=== PATIENT | female | born 1940 | race African-American/Black ===

== ENCOUNTER 2018-06-15 16:40 | Emergency (ER) | payer MEDICARE ==
[~2018-06-15] VITALS: Ht 175.3 cm; Wt 108.9 kg
[2018-06-15] MEDS ORDERED: CLONIDINE HCL 0.1 MG TAB PO ONE (17:30)
[2018-06-15 18:40] VITALS: BP 171/94
== END 2018-06-15 18:47 | disposition home or self-care (01) ==
LOC: ER 16:40
DX: I10 Essential (primary) hypertension (principal)
CPT/HCPCS: 99282

== ENCOUNTER → 2019-02-27 | Outpatient (CLI) | payer MEDICARE | LOC: RAD 09:11 | PROVIDERS: ATTEND Psychiatry & Neurology Clinical Neurophysiology | DX: I82.402 Acute embolism and thrombosis of unspecified deep veins of left lower extremity (principal) | CPT/HCPCS: 93971 ==

== ENCOUNTER 2019-03-01 08:55 | Outpatient (RCR) | payer MEDICARE | END 2019-03-08 | LOC: PT 08:55 | PROVIDERS: ATTEND Psychiatry & Neurology Clinical Neurophysiology | DX: I63.9 Cerebral infarction, unspecified (principal); R26.9 Unspecified abnormalities of gait and mobility; M62.81 Muscle weakness (generalized); R26.2 Difficulty in walking, not elsewhere classified ==

== ENCOUNTER → 2019-09-17 | Outpatient (CLI) | payer MEDICARE ==
[~2019-09-17] MED LIST: REGADENOSON 0.4 MG/5 ML SYR IV ONE
--- NOTE | 2019-09-18 18:48 | Myoview Stress Test ---
DATE OF STUDY: 09/17/2019 08:36:00 Stress Test - Treadmill ONLY PROCEDURE: Rest/stress single isotope SPECT imaging with pharmacologic stress and gated SPECT imaging. INDICATION: Preop clearance. PROCEDURE IN DETAIL: Pharmacologic stress testing was performed with regadenoson per protocol. The heart rate was 64 beats per minute at rest and increased to 81 beats per minute during the regadenoson infusion. The resting blood pressure was 156/85 mmHg and decreased to 133/80 mmHg, which is a normal response. The resting electrocardiogram demonstrated normal sinus rhythm. There were no ST-segment changes suggestive of myocardial ischemia. Myocardial perfusion imaging was performed at rest following the injection of 11 mCi of tetrofosmin. At peak pharmacologic effect, the patient was injected with 33 mCi of tetrofosmin. Gated post-stress tomographic imaging was performed. FINDINGS: The overall quality of study is fair. Left ventricular cavity is noted to be normal size on the rest and stress studies. SPECT images demonstrate homogeneous tracer distribution throughout the myocardium. Gated SPECT imaging reveals normal myocardial thickening and wall motion. The left ventricular ejection fraction was calculated to be 57%. IMPRESSION: Myocardial perfusion imaging is normal. Overall, left ventricular systolic function was normal without regional wall motion abnormalities. Nancy Wang MD ABS/MODL /[id number]
== END ==
LOC: NM 08:24
PROVIDERS: ATTEND Internal Medicine
DX: Z01.818 Encounter for other preprocedural examination (principal)
CPT/HCPCS: 78452; 93017; A9502; J2785